=== PATIENT | male | born 1985 | race Caucasian/White ===

== ENCOUNTER 2018-10-28 13:19 | Emergency (ER) | payer OTHER, SELFPAY ==
[2018-10-28 13:21] VITALS: BP 147/92; PULSE 89; RESP 20; TEMP 36.6; O2SAT 99; BMI 29.7
--- NOTE | 2018-10-28 13:36 | ED.RN ---
PT UNABLE TO GIVE URINE SAMPLE AT THIS TIME IN TRIAGE
[2018-10-28 13:52] LABS: Absolute Lymphocyte Count 0.74 X10^3/ul (0.83-4.51); Absolute Neutrophil Count 12.1 X10^3/uL (2.0-7.7); Basophil# 0.05 X10^3/uL; Basophil% 0.4 % (0-1); Eosinophil# 0.02 X10^3/uL; Eosinophils% 0.1 % (0-5); Hematocrit 49.5 % (40-54); Lymphocyte # 0.74 X10^3/ul (4.0); Lymphocyte % 5.5 % (19-41); Mean Corp Hgb Conc 34.3 g/gl (32-36); Mean Corpuscular Hgb 29.5 pg (27.0-32.0); Mean Corpuscular Volume 85.9 fL (80-94); Mean Platelet Vol. 10.4 fl (6.2-12.0); Monocyte# 0.55 X10^3/uL; Monocyte% 4.1 % (0-10); Neutrophil # 12.06 X10^3/uL (2.7-7.7); Neutrophil % 89.8 % (47-70); Platelet Count 247 K/mm3 (150-450); RBC Distribution Width SD 37.7 fl (35.1-43.9); Red Blood Count 5.76 M/mm3 (4.6-6.2); White Blood Count 13.4 K/mm3 (4.4-11.0)
[2018-10-28 13:58] LABS: Anion Gap 8 (5-15); BUN 15 mg/dL (7-18); BUN/Creat Ratio 11.7 RATIO (10-20); Calcium,Total 9.6 mg/dL (8.5-10.1); Chloride 105 mmol/L (98-107); Creatinine, Serum 1.28 mg/dL (0.70-1.30); EST Glomerular Filtration Rate 69 mL/min (>60); Est Glom Filt Rate - Afr Amer 83 mL/min (>60); Estimated Creatinine Clearance 101.72 ml/min; Glucose 108 mg/dL (74-106); Potassium 4.1 mmol/L (3.5-5.1); Sodium Level 140 mmol/L (136-145)
[2018-10-28 14:05] LABS: POSITIVE COUNT NO; POSITIVE DIFFERENTIAL NO; POSITIVE MORPHOLOGY NO
--- NOTE | 2018-10-28 14:42 | ED.VIS.GEN ---
History of Present Illness Chief Complaint: Flank Pain Informant: Patient Onset: Today Context: Sudden Onset - several hours ago Timing: Continuous, Waxes and wanes Quality: Pain Location: Left flank, radiating into groin and scrotum Current Severity: Severe Maximum Severity: Severe Worsened by: nothing Relieved by: nothing Associated Symptoms: n/v. difficulty starting urination. Prior similar symptoms: No Past Medical History - Allergies and Home Meds Allergies/Adverse Reactions: Allergies amoxicillin trihydrate [From Augmentin] Allergy (Verified 10/28/18 13:21) Unknown cefaclor [From Ceclor] Allergy (Verified 10/28/18 13:21) Unknown potassium clavulanate [From Augmentin] Allergy (Verified 10/28/18 13:21) Unknown Primary Care Physician: Care Physician,No Primary [Primary Care Provider] - Past Medical History: None Surgical History: no surgical history Smoking Status: Never smoker Review of Systems General: Denies: Chills, Fever, Sweats Eyes: Denies: Visual changes - bilaterally, Diplopia ENT: Denies: Rhinorrhea, Sore throat Cardiovascular: Denies: Chest pain, Palpitations Respiratory: Denies: Dyspnea, Cough, Dyspnea on exertion Gastrointestinal: Reports: Abdominal pain, Nausea, Vomiting. Denies: Diarrhea, Constipation, Melena, Hematochezia Genitourinary: Reports: - - urgency. see HPI.. Denies: Hematuria, Frequency Musculoskeletal: Reports: Back pain. Denies: Extremity Pain Skin: Denies: Rash, Wounds Neurological: Denies: Headache, Weakness, Numbness Physical Exam Vital Signs/Narrative: Vital Signs Temp Pulse Resp BP Pulse Ox 10/28/18 13:21 97.9 F 89 20 H 147/92 H 99 Inital Vital Signs reviewed: Yes General: Well nourished, Well developed, Acute Distress - mild, painful Head: Normocephalic, Atraumatic Eyes: Perrl, EOMI ENT: Moist mucous membranes, No rhinorrhea Neck: Supple, Nontender Cardiovascular: Regular rate, Regular rhythm, No murmurs Respiratory: No distress, CTA bilaterally, Chest nontender Abdomen: Soft, Nontender, Nondistended, Normal bowel sounds, No masses. Negative for: Pulsatile mass Back: Normal Inspection, CVA tenderness - left Extremities: Nontender, No edema Skin: Normal color, No rash Neurological: Alert, Oriented x3, Cranial nerves II-XII grossly intact, Normal Strength, Normal Sensation Psychological: Normal affect, Normal Mood Diagnostic/Tx/Re-eval Laboratory Tests 10/28/18 10/28/18 10/28/18 Range/Units 15:50 13:30 13:30 WBC 13.4 H (4.4-11.0) K/mm3 RBC 5.76 (4.6-6.2) M/mm3 Hgb 17.0 H (13.0-16.5) g/dl Hct 49.5 (40-54) % MCV 85.9 (80-94) fL MCH 29.5 (27.0-32.0) pg MCHC 34.3 (32-36) g/gl RDW 12.0 (11.6-14.6) % RDW Differential 37.7 (35.1-43.9) fl Plt Count 247 (150-450) K/mm3 MPV 10.4 (6.2-12.0) fl Immature Gran % (Auto) 0.100 (0.0-0.9) % Neut % (Auto) 89.8 H (47-70) % Lymph % (Auto) 5.5 L (19-41) % [place] % (Auto) 4.1 (0-10) % Eos % (Auto) 0.1 (0-5) % Baso % (Auto) 0.4 (0-1) % Absolute Neuts (auto) 12.1 H (2.0-7.7) X10^3/uL Absolute Lymphs (auto) 0.74 L (0.83-4.51) X10^3/ul Total Counted Not Reportable Sodium 140 (136-145) mmol/L Potassium 4.1 (3.5-5.1) mmol/L Chloride 105 (98-107) mmol/L Carbon Dioxide 27.0 (21.0-32.0) mmol/L Anion Gap 8 (5-15) BUN 15 (7-18) mg/dL Creatinine 1.28 (0.70-1.30) mg/dL Estim Creat Clear Calc 101.72 ml/min Est GFR (MDRD) Af Amer 83 (>60) mL/min Est GFR (MDRD) Non-Af 69 (>60) mL/min BUN/Creatinine Ratio 11.7 (10-20) RATIO Glucose 108 H (74-106) mg/dL Calcium 9.6 (8.5-10.1) mg/dL Urine Color Yellow (Yellow) Urine Clarity Cloudy (Clear) Urine pH 7.0 (5.0 - 8.0) Ur Specific [place] 1.010 (1.002-1.030) Urine Protein 30 H (Negative) mg/dl Urine Glucose (UA) Normal (Normal) mg/dl Urine Ketones 5 H (Negative) mg/dl Urine Occult Blood 250 H (Negative) /ul Urine Nitrite Negative (Negative) Urine Bilirubin Negative (Negative) mg/dL Urine Urobilinogen 1 H (Normal) mg/dl Ur Leukocyte Esterase 100 H (Negative) /ul Urine RBC > 100 SEEN (0-5) /hpf Urine WBC 0-5 SEEN (0-5) /hpf Ur Squamous Epith Cells 0-5 SEEN (0-5) /hpf Urine Bacteria 2+ (None Seen) /hpf Urine Mucus 2+ (<or=2+) /hpf - Medical Decision Making History and exam are consistent with urolithiasis. His pain is mostly down in his groin, indicating that he likely has a UVJ stone, and is probably small enough to pass on its own with expectant management. After treatment with Toradol Zofran and morphine, his pain is resolved and he is very comfortable. His urine shows no pyuria. We discussed the lack of necessity for a CT scan although if he has trouble passing the stone he can certainly be done. He is okay with that. He will be prescribed Percocet, Naprosyn, Zofran to use for symptoms and given urine strainers at home with instructions for expectant management and urologic follow-up if needed. He is comfortable with that plan. ED Disposition - Plan for ED Patient: Disposition: Home or Assisted Living Diagnosis: Urolithiasis, Renal colic on left side Instructions: ED Stone Renal W Colic, ED Strainer Urine Prescriptions: Oxycodone HCl/Acetaminophen [Percocet 5/325] 1 tab PO Q6H PRN PRN 4 Days #16 tab PRN Reason: Pain Naproxen [Naprosyn] 500 mg PO BID PRN #20 tab Ondansetron HCl [Zofran] 8 mg PO Q8H PRN #12 tab PRN Reason: Nausea Referrals: Ulises Arizmendi MD [STAFF PHYSICIAN] - (1-2 weeks if not able to pass stone) Additional Instructions: May return to the ER for symptoms or not able to control. Strain all of your urine until you see a small pebble. You may save this for analysis the next time you see your doctor.
[2018-10-28] MEDS: Ondansetron 4 MG/2 ML Vial IV (15:02)
[2018-10-28] MEDS: Ketorolac 30 MG/ML Syringe IV (15:03)
[2018-10-28] MEDS: Morphine 4 MG/ML Syringe IV ×2 (15:04→17:17)
[2018-10-28 15:10] VITALS: BP 145/81; PULSE 90; RESP 18; O2SAT 95
[2018-10-28 16:41] LABS: Color, Urine Yellow (Yellow); Glucose, Dipstick Normal (Normal); Ketone-Dipstick 5 mg/dl (Negative); Leukocyte Esterase-Dipstick 100 /ul (Negative); Nitrite-Dipstick Negative (Negative); Occult Blood-Urine 250 /ul (Negative); Protein-Dipstick 30 mg/dl (Negative); Urine Bilirubin Dipstick Negative (Negative); Urine Clarity Cloudy (Clear); Urine Urobilinogen 1 mg/dl (Normal)
[2018-10-28 16:46] LABS: Bacteria 2+ /hpf (None Seen); Mucous, Urine 2+ /hpf (<or=2+); Red Blood Cells-Urine > 100 SEEN /hpf (0-5); Squamous Epithelial Cells - UA 0-5 SEEN /hpf (0-5); White Blood Cells 0-5 SEEN /hpf (0-5)
[2018-10-28 17:22] VITALS: BP 130/85; PULSE 99; RESP 16; O2SAT 94
--- NOTE | 2018-10-28 17:24 | ED.RN ---
pt and family verbalize understanding of written and verbal discharge instructions. pt sent home with urine strainers. pt was given 4mg of morphine at 17:20 and remained in the ER for observation for 20 min before leaving
== END 2018-10-28 17:40 | disposition home or self-care (01) ==
PROVIDERS: Emergency Provider Emergency Medicine
DX: N20.0 Calculus of kidney (principal)
CPT/HCPCS: 80048; 81001; 85025; 96374; 96375; 96376; 99283; A4216; J2405

== ENCOUNTER → 2018-11-14 14:46 | Outpatient (CLI) | payer OTHER, SELFPAY ==
[2018-10-28 13:21] VITALS: BMI 29.7
--- NOTE | 2018-11-14 14:48 | CT_ITS ---
STUDY: CT ABDOMEN AND PELVIS WITHOUT CONTRAST REASON FOR EXAM: Male, 32 years old. Left flank pain and hematuria. RADIATION DOSAGE (If Supplied By Facility): CTDIvol = ( 14.79 ) mGy, DLP = ( 862.56 ) mGycm TECHNIQUE: Transaxial images were obtained from the dome of the diaphragm to the symphysis pubis without oral contrast, and without intravenous contrast. Sagittal and coronal images were reconstructed. Individualized dose optimization techniques were used for this CT. COMPARISON: None. FINDINGS: The visualized lung bases are unremarkable. The visualized portions of the heart are within normal limits. Normal liver. Normal gallbladder and extrahepatic biliary system. Normal spleen. Normal pancreas. Normal bilateral adrenal glands. Normal right kidney. The seventh of left perinephric stranding and periureteric stranding. There is engorgement of the left kidney. Mild degree of left hydronephrosis and hydroureter due to a 5.6 mm calculus at the left ureterovesical junction. Normal visualized stomach. Normal small intestine. There are multiple colonic diverticula consistent with diverticulosis. There are surgical clips in the region of the appendix consistent with a prior appendectomy. Normal abdominal aorta. Normal inferior vena cava. There is borderline retroperitoneal lymphadenopathy with enlarged nodes no greater than 10mm in the short axis diameter. Normal urinary bladder. There is a small umbilical hernia containing fat. Normal osseous structures. CT/Abdomen/Pelvis without Cont IMPRESSION: 5.6 mm at this at the left vesicle junction causing left hydronephrosis and left hydroureter. Electronically Signed: Keven Mack, at 15:41 EDT , Service support ,
== END ==
PROVIDERS: Referring Provider Nurse Practitioner Adult Health; Visit Provider Nurse Practitioner Adult Health
DX: R31.9 Hematuria, unspecified (principal)
CPT/HCPCS: 74176

== ENCOUNTER 2018-11-15 09:37 | Day surgery (SDC) | payer OTHER, SELFPAY ==
--- NOTE | 2018-11-15 09:55 | RAD_ITS ---
STUDY: X-RAY - ABDOMEN/PELVIS REASON FOR EXAM: Male, 32 years old. Left-sided abdominal pain. Kidney stones TECHNIQUE: Two AP supine views of the abdomen and pelvis. COMPARISON: None. FINDINGS: Normal visualized lung bases. There is an unremarkable bowel gas pattern. There is no demonstrated free abdominal air. The visualized liver, spleen and kidneys are grossly normal in size and morphology. Normal soft tissue structures. Normal visualized osseous structures. RAD/Abdomen Single View IMPRESSION: Normal x-ray examination of the abdomen and pelvis. Electronically Signed: Zak Paulino DO at 10:07 EDT Tel , Service support ,
[2018-11-15 10:37] VITALS: BP 124/77; PULSE 85; RESP 16; TEMP 36.3; O2SAT 95; BMI 29.5
[2018-11-15] MEDS: Cefazolin 2 GM in 0.9% Normal Saline 100 ML IV (11:52)
[2018-11-15 12:30] VITALS: BP 124/77; BP 138/100; PULSE 115; RESP 20; TEMP 36; O2SAT 97
--- NOTE | 2018-11-15 12:36 | DCINST_ITS ---
Discharge Diet: No Restrictions Discharge Activity: Return to Normal Activity, May Not Drive - for 2 days. Allergies/Adverse Reactions: Allergies amoxicillin trihydrate [From Augmentin] Allergy (Verified 11/14/18 16:01) Unknown cefaclor [From Ceclor] Allergy (Verified 11/14/18 16:01) Unknown potassium clavulanate [From Augmentin] Allergy (Verified 11/14/18 16:01) Unknown Medications to take at Discharge Naproxen [Naprosyn] 500 mg PO BID PRN #20 tab 10/28/18 Ondansetron HCl [Zofran] 8 mg PO Q8H PRN #12 tab 10/28/18 Oxycodone HCl/Acetaminophen [Percocet 5-325 mg Tablet] 1 each PO Q6H PRN PRN 11/14/18 Hydrocodone/Acetaminophen [[place] 5-325 Tablet] 1 ea PO Q4H PRN PRN 7 Days #20 tab 11/15/18 Tamsulosin HCl [Flomax] 0.4 mg PO DAILY #20 cap 11/15/18 Primary Care Physician: Care Physician,No Primary [Primary Care Provider] - Test Results: Test results from this visit will be discussed in further detail at your follow- up appointment, if applicable. Please Follow Up With: Ulises Arizmendi MD When: in 2 weeks, please call to make an appointment.
--- NOTE | 2018-11-15 12:38 | PCM.OPRPT ---
Report of Operation Date of Procedure: 11/15/18 Pre-Operative Diagnosis: Left ureteral calculi Post-Operative Diagnosis: Same Surgery/Procedure Performed:: Left extracorporeal shockwave lithotripsy Description of Surgical Findings:: 32-year-old male has a stone in the distal left ureter is not been able to pass it is been having significant pain and discomfort today we will proceed with shockwave lithotripsy to break the stone so he can passing fragments. 32-year-old male taken back to the operating room at the smooth induction of anesthesia he was placed in supine position we then found the stone in the distal left ureter under fluoroscopy and we delivered a total of 2500 shockwaves at a rate of 90 power up to 7 and 9 and at the end of the treatment the stone broke up really nicely decided not to leave a stent or do any procedures patient anesthetic was reversed is taken back to PACU good condition will see him back in the office in a few weeks with an x-ray. Type of Anesthesia:: General Drains: none - Admit VTE Documentation VTE Present on Admission: No VTE Mechan Device Prophylaxis: SCD's
[2018-11-15 12:45] VITALS: BP 124/77; BP 129/84; PULSE 88; RESP 16; O2SAT 98
[2018-11-15 12:59] VITALS: BP 124/77; BP 131/84; PULSE 86; RESP 16; TEMP 36.7; O2SAT 98
[2018-11-15 13:26] VITALS: BP 110/79; BP 124/77; PULSE 84; RESP 16; TEMP 36.5; O2SAT 99
== END 2018-11-15 14:02 | disposition home or self-care (01) ==
LOC: SDC 09:38 → AC 13:20
PROVIDERS: Referring Provider Urology; Visit Provider Urology
PROC: (CPT 50590; principal; 2018-11-15 11:30)
DX: N20.1 Calculus of ureter (principal)
CPT/HCPCS: 50590; 74018; J7120; J2405

== ENCOUNTER → 2019-03-22 | Outpatient (CLI) | payer OTHER, SELFPAY ==
[2019-03-22 08:52] LABS: Anion Gap 7 (5-15); BUN 14 mg/dL (7-18); BUN/Creat Ratio 15.2 RATIO (10-20); Chloride 108 mmol/L (98-107); Cholesterol 175 mg/dL (200); Creatinine, Serum 0.92 mg/dL (0.70-1.30); EST Glomerular Filtration Rate 101 mL/min (>60); Est Glom Filt Rate - Afr Amer 122 mL/min (>60); Glucose 92 mg/dL (74-106); High Density Lipoprotein 41 mg/dL; Potassium 3.8 mmol/L (3.5-5.1); Sodium Level 142 mmol/L (136-145); Triglycerides 196 mg/dL; Very Low Density Lipoprotein 39 mg/dL (5-40)
[2019-03-24 10:01] LABS: Vitamin D,25 Hydroxy 22.6 ng/mL (29.95-100.01)
== END | disposition home or self-care (01) ==
LOC: LAB 07:25
PROVIDERS: Family Provider Family Medicine; PCP Family Medicine; Referring Provider Family Medicine; Visit Provider Family Medicine
DX: Z00.00 Encounter for general adult medical examination without abnormal findings (principal)
CPT/HCPCS: 36415; 80048; 80061; 82306

== ENCOUNTER → 2020-12-15 16:25 | Outpatient (CLI) | payer OTHER, SELFPAY ==
[2020-12-15 17:29] LABS: NATERA MAILED SPECIMEN
== END ==
PROVIDERS: PCP Family Medicine; Referring Provider Obstetrics & Gynecology; Visit Provider Obstetrics & Gynecology
DX: Z31.440 Encounter of male for testing for genetic disease carrier status for procreative management (principal)
CPT/HCPCS: 36415

== ENCOUNTER 2021-08-15 09:11 | Outpatient (CLI) | payer OTHER, SELFPAY | END 2021-08-15 23:59 | disposition short-term general hospital (02) | LOC: LABSPEC 09:12 | PROVIDERS: PCP Family Medicine; Referring Provider Physician Assistant Surgical; Visit Provider Physician Assistant Surgical | DX: Z20.822 Contact with and (suspected) exposure to COVID-19 (principal) | CPT/HCPCS: 87635; U0003; U0005 ==